=== PATIENT | female | born 1995 | race Caucasian/White ===

== ENCOUNTER → 2017-05-26 | Outpatient (REF) | payer OTHER | LOC: M LAB REF 18:49 | PROVIDERS: ATTEND Specialist | DX: Z12.4 Encounter for screening for malignant neoplasm of cervix (principal) ==

== ENCOUNTER → 2018-05-29 | Outpatient (REF) | payer OTHER | LOC: M LAB REF 13:42 | DX: Z12.4 Encounter for screening for malignant neoplasm of cervix (principal) | CPT/HCPCS: G0123 ==

== ENCOUNTER → 2019-05-30 | Outpatient (REF) | payer OTHER | LOC: M LAB REF 13:24 | PROVIDERS: ATTEND Specialist | DX: Z12.4 Encounter for screening for malignant neoplasm of cervix (principal) ==

== ENCOUNTER → 2019-08-21 | Outpatient (CLI) | payer OTHER ==
[2019-08-21 13:33] LABS: HEMATOCRIT 43.2 % (36.0-47.0); HEMOGLOBIN 13.8 g/dl (12.0-15.5); MEAN CORPUSCULAR HEMOGLOBIN 28.3 pg (27.0-33.0); MEAN CORPUSCULAR HGB CONC 31.9 g/dl (32.0-36.5); MEAN CORPUSCULAR VOLUME 88.5 fl (80.0-96.0); PLATELET COUNT, AUTOMATED 346 10^3/uL (150-450); RED BLOOD COUNT 4.88 10^6/uL (4.00-5.40); WHITE BLOOD COUNT 12.2 10^3/uL (4.0-10.0)
== END ==
LOC: M LAB 12:39
PROVIDERS: ATTEND Advanced Practice Midwife
DX: O02.1 Missed abortion (principal)

== ENCOUNTER → 2019-08-27 | Outpatient (CLI) | payer OTHER | LOC: M LAB 17:50 | PROVIDERS: ATTEND Advanced Practice Midwife | DX: O02.1 Missed abortion (principal) ==

== ENCOUNTER → 2019-09-05 | Outpatient (REF) | payer OTHER ==
[2019-09-05 12:14] LABS: BASO # 0.1 10^3/uL (0.0-0.2); BASO % 0.6 % (0.0-1.0); EOS # 0.2 10^3/uL (0.0-0.5); EOS % 2.4 % (0.0-3.0); HEMATOCRIT 41.6 % (36.0-47.0); HEMOGLOBIN 13.4 g/dl (12.0-15.5); LYMPH # 2.7 10^3/uL (1.5-5.0); LYMPH % 34.2 % (24.0-44.0); MEAN CORPUSCULAR HGB CONC 32.2 g/dl (32.0-36.5); MEAN CORPUSCULAR VOLUME 86.8 fl (80.0-96.0); MONO # 0.9 10^3/uL (0.0-0.8); NEUTROPHILS # 3.9 10^3/uL (1.5-8.5); PLATELET COUNT, AUTOMATED 310 10^3/uL (150-450); RED BLOOD COUNT 4.79 10^6/uL (4.00-5.40); WHITE BLOOD COUNT 7.8 10^3/uL (4.0-10.0)
[2019-09-05 12:25] LABS: ALBUMIN 3.6 GM/DL (3.2-5.2); ALT/SGPT 20 U/L (12-78); BILIRUBIN,TOTAL 0.5 MG/DL (0.2-1.0); BLOOD UREA NITROGEN 13 MG/DL (7-18); CALCIUM LEVEL 9.1 MG/DL (8.5-10.1); CARBON DIOXIDE LEVEL 25 MEQ/L (21-32); CHLORIDE LEVEL 101 MEQ/L (98-107); CHOLESTEROL LEVEL 257 MG/DL (<200); CHOLESTEROL RISK RATIO 4.508 (<5); CREATININE FOR GFR 0.68 MG/DL (0.55-1.30); FREE T4 1.03 NG/DL (0.76-1.46); GLOMERULAR FILTRATION RATE > 60.0 (>60); GLUCOSE, FASTING 98 MG/DL (70-100); HDL CHOLESTEROL 57 MG/DL (>40); LDL CHOLESTEROL 176 MG/DL (<100); NON-HDL-C 200 MG/DL; POTASSIUM SERUM 3.9 MEQ/L (3.5-5.1); SODIUM LEVEL 136 MEQ/L (136-145); TOTAL PROTEIN 7.5 GM/DL (6.4-8.2); TRIGLYCERIDES LEVEL 122 MG/DL (<150)
[2019-09-05 12:46] LABS: CREATININE, URINE 14.7 MG/DL; MALB URINE SIEMENS < 5.0 MG/L
== END ==
LOC: M SFHCCLAY 07:28
PROVIDERS: ATTEND Nurse Practitioner Family
DX: I10 Essential (primary) hypertension (principal)

== ENCOUNTER → 2019-09-05 | Outpatient (REF) | payer OTHER | LOC: M LABDRAWC 11:19 | PROVIDERS: ATTEND Advanced Practice Midwife | DX: O02.1 Missed abortion (principal) ==

== ENCOUNTER → 2020-02-26 | Outpatient (REF) | payer OTHER | LOC: M SFHCCLAY 13:06 | PROVIDERS: ATTEND Nurse Practitioner Family | DX: Z3A.01 Less than 8 weeks gestation of pregnancy (principal) ==

== ENCOUNTER → 2020-02-29 | Outpatient (REF) | payer OTHER | LOC: M SFHCCLAY 08:08 | PROVIDERS: ATTEND Nurse Practitioner Family | DX: Z3A.01 Less than 8 weeks gestation of pregnancy (principal) ==

== ENCOUNTER → 2020-03-22 | Outpatient (CLI) | payer OTHER ==
[2020-03-22 18:12] LABS: BASO % 0.5 % (0.0-1.0); EOS # 0.1 10^3/uL (0.0-0.5); EOS % 1.1 % (0.0-3.0); HEMATOCRIT 38.7 % (36.0-47.0); HEMOGLOBIN 12.4 g/dl (12.0-15.5); LYMPH # 1.9 10^3/uL (1.5-5.0); MEAN CORPUSCULAR HEMOGLOBIN 28.1 pg (27.0-33.0); MEAN CORPUSCULAR VOLUME 87.8 fl (80.0-96.0); MONO # 0.6 10^3/uL (0.0-0.8); MONO % 6.4 % (0.0-5.0); NEUTROPHILS # 6.2 10^3/uL (1.5-8.5); NEUTROPHILS % 69.5 % (36.0-66.0); PLATELET COUNT, AUTOMATED 276 10^3/uL (150-450); RED BLOOD COUNT 4.41 10^6/uL (4.00-5.40); WHITE BLOOD COUNT 8.9 10^3/uL (4.0-10.0)
[2020-03-22 18:20] LABS: ALT/SGPT 25 U/L (12-78); BILIRUBIN,TOTAL 0.3 MG/DL (0.2-1.0); GLOMERULAR FILTRATION RATE > 60.0 (>60); GLUCOSE CHALLENGE TEST 1 HOUR 159 MG/DL (LESS THAN 140); LDH LACTATE DEHYDROGENASE 131 U/L (84-246); URIC ACID 3.5 MG/DL (2.6-6.0)
[2020-03-22 18:35] LABS: CREATININE,RANDOM URINE 15.2 MG/DL; TOTAL PROTEIN,RANDOM URINE < 5.0 MG/DL (0.0-12.0)
[2020-03-22 18:45] LABS: HEMOGLOBIN A1c 5.8 %
[2020-03-22 22:11] LABS: CHLAMYDIA DNA AMPLIFICATION NEGATIVE (NEGATIVE); GC DNA AMPLIFICATION NEGATIVE (NEGATIVE)
[2020-03-24 11:37] LABS: HEPATITIS B SURFACE ANTIGEN NEGATIVE (NEGATIVE)
[2020-03-24 12:05] LABS: HIV 1&2 SCREEN CENTAUR NEGATIVE (NEGATIVE)
[2020-03-24 12:39] LABS: HEPATITIS C VIRUS ABY INDEX 0.2 INDEX (<0.8)
== END ==
LOC: M WUC 08:33
PROVIDERS: ATTEND Advanced Practice Midwife
DX: O10.919 Unspecified pre-existing hypertension complicating pregnancy, unspecified trimester (principal)

== ENCOUNTER → 2020-04-04 | Outpatient (CLI) | payer OTHER | LOC: M LAB 07:51 | PROVIDERS: ATTEND Advanced Practice Midwife | DX: O09.211 Supervision of pregnancy with history of pre-term labor, first trimester (principal) ==

== ENCOUNTER → 2020-06-05 | Outpatient (CLI) | payer OTHER ==
--- NOTE | 2020-06-24 17:28 | REP ---
OBSTETRIC SONOGRAPHY HISTORY: Supervision of . Estimated date of delivery (BLAIR) 10/22/2020. FINDINGS: Scanning through the gravid uterus demonstrates a viable single intrauterine gestation in a transverse, head to the maternal right lie. Placenta is anterior grade 0 without evidence of placenta previa or abruption. Closed cervical length is 3.4 cm. Amniotic fluid is subjectively normal. heart rate is recorded at 161 beats per minute. No abnormality is observed. Four chamber and ventricular outflow tract views are not optimally seen today due to position. The following additional anatomic structures are identified and felt to be unremarkable: Cisterna magna, cavum septum, thalami, spine, left-sided stomach, kidneys and bladder, three-vessel cord, abdominal wall cord insertion, face and lips, upper and lower extremities. BIOMETRY CHART: BPD 46 mm 20 weeks 0 days Head Circumference 173 mm 20 weeks 0 days Abdominal Circumference 153 mm 20 weeks 4 days Femur Length 33 mm 20 weeks 3 days Humeral Length 31 mm 20 weeks 2 days Cerebellum 19 mm 20 weeks 1 day Estimated Weight 351 g 60th percentile IMPRESSION: Viable single intrauterine gestation at 20 weeks 2 days. Four chamber heart and outflow tract views less than optimally achieved today due to position. Transverse lie. MTDD
== END ==
LOC: M WHC 12:43
PROVIDERS: ATTEND Advanced Practice Midwife
DX: Z34.82 Encounter for supervision of other normal pregnancy, second trimester (principal); Z3A.20 20 weeks gestation of pregnancy

== ENCOUNTER → 2020-07-07 | Outpatient (CLI) | payer OTHER ==
--- NOTE | 2020-07-16 13:43 | REP ---
FOLLOW-UP ANATOMY COMPARISON: 06/05/2020. TECHNIQUE: Real-time ultrasound evaluation of the gravid uterus is performed utilizing transabdominal technique. There is a single living intrauterine gestation. The estimated gestational age is 24 weeks 5 days, estimated date of confinement (EDC) 10/22/2020. Todays measurements indicate appropriate growth. BIOMETRY CHART: BPD 63 mm 25 weeks 3 days 65th percentile HC 229 mm 25 weeks 0 days 55th percentile AC 203 mm 24 weeks 6 days 54th percentile Femur length 45 mm 24 weeks 5 days 52nd percentile AC/HC ratio 1.13 Normal 1.02 to 1.21 Estimated weight 747 grams 49th percentile position is cephalic. Placenta is anterior and grade 1 with no previa or abruption. Placental cord insertion is in the mid aspect. Three-vessel cord is noted. heart rate is 158 beats per minute. Amniotic fluid appears within normal limits. Cervix is closed and measures 3.6 cm in length. Visualized anatomy today includes the facial structures, ventricular outflow tracts, stomach, kidneys, and bladder. Once again, the four chamber heart is not well visualized due to position. [facility]
== END ==
LOC: M WHC 14:29
PROVIDERS: ATTEND Advanced Practice Midwife
DX: Z34.82 Encounter for supervision of other normal pregnancy, second trimester (principal); Z3A.25 25 weeks gestation of pregnancy

== ENCOUNTER → 2020-07-21 | Outpatient (CLI) | payer OTHER ==
[2020-07-21 09:00] LABS: HEMATOCRIT 33.8 % (36.0-47.0); HEMOGLOBIN 10.9 g/dl (12.0-15.5); MEAN CORPUSCULAR HEMOGLOBIN 28.3 pg (27.0-33.0); MEAN CORPUSCULAR HGB CONC 32.2 g/dl (32.0-36.5); MEAN CORPUSCULAR VOLUME 87.8 fl (80.0-96.0); PLATELET COUNT, AUTOMATED 244 10^3/uL (150-450); RED BLOOD COUNT 3.85 10^6/uL (4.00-5.40); WHITE BLOOD COUNT 9.9 10^3/uL (4.0-10.0)
== END ==
LOC: M LAB 07:46
PROVIDERS: ATTEND Advanced Practice Midwife
DX: O10.012 Pre-existing essential hypertension complicating pregnancy, second trimester (principal); Z3A.00 Weeks of gestation of pregnancy not specified

== ENCOUNTER → 2020-08-25 | Outpatient (CLI) | payer OTHER ==
--- NOTE | 2020-08-26 04:11 | REP ---
INDICATION: O10.919 CHRONIC HYPERTENSION,GROWTH COMPARISON: 07/25/2020 TECHNIQUE: Transabdominal obstetrical ultrasound with color Doppler evaluation. FINDINGS: Examination demonstrates a single live intrauterine in cephalic presentation. motion is identified by technologist. Placenta is noted anterior and grade 1 without evidence for placenta previa or abruption. Amniotic fluid volume is normal. Cervix measures 3.0 cm in length and appears closed.. Gestational age by LMP 31 weeks 5 days with BLAIR 10/22/2020. Gestational age by current measurements 31 weeks 5 days with BLAIR 10/22/2020. FHR equals 147 beats per minute. BPD: 8.0 cm 32 weeks 0 days HC: 28.8 cm 31 weeks 4 days AC: 27.6 cm 31 weeks 5 days FL: 6.1 cm 31 weeks 4 days HL: 5.4 cm 31 weeks 4 days HC/AC: 1.04 Estimated weight 1812 grams (37thpercentile). NEENA: 13.9 cm (8.7-24.1) IMPRESSION: Single live advanced gestation in cephalic presentation demonstrating appropriate estimated weight and growth. Amniotic fluid index is normal. <Electronically signed by Humble Villa > 08/26/20 0139
== END ==
LOC: M WHC 10:49
PROVIDERS: ATTEND Advanced Practice Midwife
DX: O10.913 Unspecified pre-existing hypertension complicating pregnancy, third trimester (principal); Z3A.31 31 weeks gestation of pregnancy

== ENCOUNTER → 2020-08-27 | Outpatient (REF) | payer OTHER | LOC: M PLALAB 16:56 | PROVIDERS: ATTEND Obstetrics & Gynecology | DX: O10.913 Unspecified pre-existing hypertension complicating pregnancy, third trimester (principal); Z3A.00 Weeks of gestation of pregnancy not specified; Z53.9 Procedure and treatment not carried out, unspecified reason ==

== ENCOUNTER → 2020-09-09 | Outpatient (CLI) | payer OTHER ==
--- NOTE | 2020-09-11 06:58 | REP ---
INDICATION: GROWTH COMPARISON: 08/25/2020 TECHNIQUE: Transabdominal obstetrical ultrasound with color Doppler evaluation. FINDINGS: Examination demonstrates a single live intrauterine in cephalic presentation. motion is identified by technologist. Placenta is noted anterior and grade 2 without evidence for placenta previa or abruption. Amniotic fluid volume is normal. Cervix measures 3.0 cm in length and appears closed.. Gestational age by LMP 33 weeks 6 days with BLAIR 10/22/2020. Gestational age by current measurements 34 weeks 1 day with BLAIR 10/20/2020. FHR equals 153 beats per minute. NEENA: 13.2 cm Estimated weight 2485 grams (66thpercentile). IMPRESSION: Single live advanced gestation in cephalic presentation demonstrating appropriate estimated weight and growth. <Electronically signed by Humble Villa > 09/11/20 0645
== END ==
LOC: M WHC 13:51
PROVIDERS: ATTEND Advanced Practice Midwife
DX: O10.913 Unspecified pre-existing hypertension complicating pregnancy, third trimester (principal); Z3A.33 33 weeks gestation of pregnancy

== ENCOUNTER → 2020-09-17 | Outpatient (REF) | payer OTHER ==
[2020-09-17 11:59] LABS: HEMATOCRIT 35.7 % (36.0-47.0); HEMOGLOBIN 11.3 g/dl (12.0-15.5); MEAN CORPUSCULAR HEMOGLOBIN 27.7 pg (27.0-33.0); MEAN CORPUSCULAR HGB CONC 31.7 g/dl (32.0-36.5); MEAN CORPUSCULAR VOLUME 87.5 fl (80.0-96.0); PLATELET COUNT, AUTOMATED 250 10^3/uL (150-450); RED BLOOD COUNT 4.08 10^6/uL (4.00-5.40); WHITE BLOOD COUNT 10.9 10^3/uL (4.0-10.0)
[2020-09-17 12:29] LABS: CREATININE,RANDOM URINE < 13.0 MG/DL; TOTAL PROTEIN,RANDOM URINE 6.9 MG/DL (0.0-12.0)
[2020-09-17 12:35] LABS: ALT/SGPT 22 U/L (12-78); BILIRUBIN,TOTAL 0.2 MG/DL (0.2-1.0); CREATININE FOR GFR 0.55 MG/DL (0.55-1.30); GLOMERULAR FILTRATION RATE > 60.0 (>60); LDH LACTATE DEHYDROGENASE 146 U/L (84-246); URIC ACID 4.2 MG/DL (2.6-6.0)
== END ==
LOC: M PLALAB 07:05
PROVIDERS: ATTEND Advanced Practice Midwife
DX: O10.919 Unspecified pre-existing hypertension complicating pregnancy, unspecified trimester (principal); Z3A.00 Weeks of gestation of pregnancy not specified

== ENCOUNTER → 2020-09-23 | Outpatient (REF) | payer OTHER | LOC: M SFHCWAGY 16:48 | PROVIDERS: ATTEND Advanced Practice Midwife | DX: O10.019 Pre-existing essential hypertension complicating pregnancy, unspecified trimester (principal); Z3A.00 Weeks of gestation of pregnancy not specified ==

== ENCOUNTER → 2020-09-30 | Outpatient (CLI) | payer OTHER ==
--- NOTE | 2020-09-30 17:49 | REP ---
INDICATION: GROWTH. TECHNIQUE: Transabdominal ultrasound. FINDINGS: Multiple ultrasonographic images of the gravid uterus shows a single living intrauterine gestation in the cephalic presentation. Doppler interrogation of the heart is a heart rate of 138 beats per minute. The subjective amniotic fluid volume is within normal limits. The calculated amniotic fluid index is 14.5 within expected range 7.5 to 24.5. The cervix measures 4.6 cm in length and is closed. BPD 8.9 cm 36 weeks 0 days HC 32.4 cm 36 weeks 4 days AC 34.1 cm 38 weeks 0 days FL 7.0 cm 35 weeks 5 days The estimated weight is 3108 g which is at the 60th percentile for 36 week 6 day gestational age. IMPRESSION: Single living intrauterine gestation as described above with an estimated gestational age of 36 weeks 3 days by composite criteria and an estimated date of delivery of 10/25/2020 by today's exam. <Electronically signed by Tyrese Lloyd > 09/30/20 [id number]
== END ==
LOC: M WHC 16:22
PROVIDERS: ATTEND Advanced Practice Midwife
DX: O10.919 Unspecified pre-existing hypertension complicating pregnancy, unspecified trimester (principal); Z3A.36 36 weeks gestation of pregnancy

== ENCOUNTER 2020-10-09 08:43 | Inpatient (IN) | payer OTHER ==
[2020-10-09] VITALS (10 sets, daily range): BP systolic 124–145; BP diastolic 76–87
[~2020-10-09] VITALS: Ht 170.2 cm; Wt 101.0 kg
--- NOTE | 2020-10-09 09:37 | HPEPDOC ---
Obstetrical History & Physical General Date of Admission Oct 09, 2020 at 08:43 History of Present Illness Patient is a 25 y/o ,0,1,0 F at 38 and 1/7 weeks gestation by LMP consisten t with 8 week ultrasound (EDC= 10/22/2020) presents for labor induction due to chronic HTN on labetolol. No contraction, no vaginal bleeding, no leaking of fluid. Positive movement on admission. Information Provided By: Patient Age: 25 : 2 Term: 0 Pre-term: 0 Abortions: 1 Livin Care Care: Good Care Dating Final EDC: Oct 22, 2020 Final EDC by: LMP, 1st trimester (US) Antepartum Course Diagnos(e)s Chronic HTN on labetalol 400mg BID Past Medical History Past Obstetrical History : Past Obstetrical History: Primgravida Past Medical History Medical History Chronic HTN Surgical History: [place] teeth Family History Significant Family History: No pertinent family hx Social History Marital Status: Family situation: Spouse/partner home Psychosocial History: No pertinent psych hx * Smoker: non-smoker Alcohol: Denies Allergies Coded Allergies: No Known Drug Allergies (Verified Allergy, Unknown, 10/09/20) Physical Examination Physical Examination GENERAL: Alert and oriented times three. BREAST: . ABDOMEN: Gravid and non-tender to touch. FETUS: Is vertex (VTX) by sterile vaginal examination (SVE), fetus is vertex (VTX) by Uzair. HEART RATE: Regular rate and rhythm. LUNGS: Clear to auscultation (CTA). EXTREMITIES: No edema. No clonus. Deep tendon reflexes (DTRs) + . Laboratory Data 24H LABS Laboratory Tests 2 10/09/20 09:11: Serology Scanned Report Hepatitis B Testing Pertinent Laboratoy Data Blood Type: A+ Group B Streptococcus: Negative Vaginal Examination Dilation: 1cm Effacement: 50% Station: -2 Cervical Consistency: Soft Cervical Position: Anterior Presentation: Cephalic presentation Assessment Variability: Moderate Accelerations: Positive Decelerations: None Tocometer Contractions: No Assessment/Plan Assessment Susana Chan is a 25-year-old (G)2 para (P)0-0-1-0 at 38+ 1/7 weeks by 8-week ultrasound consistent with LMP. Presents to Labor and Delivery (L&D) for induction due to chronic HTN on 400mg labetalol BID. Plan Admit and orient. 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 Diet: regular. Group B Streptococcus (GBS) negative. Labs and intravenous (IV) per unit protocol. Anticipate normal spontaneous delivery (). C-S as appropriate. SHANAE DOCKERY OMS-3 Oct 09, 2020 09:37
[2020-10-09] MEDS ORDERED: LABE20TAB PO ×2 (09:46→10:01)
[2020-10-09] MEDS ORDERED: DERM1TAB2 PO (09:46)
[2020-10-09] MEDS ORDERED: ASPI81CH33 PO (09:46)
[2020-10-09] MEDS ORDERED: PRENTAB9 PO (09:46)
[2020-10-09] MEDS ORDERED: LABE200T32 PO (10:01)
[2020-10-09 10:13] LABS: HEMATOCRIT 34.4 % (36.0-47.0); HEMOGLOBIN 10.8 g/dl (12.0-15.5); MEAN CORPUSCULAR HEMOGLOBIN 26.5 pg (27.0-33.0); MEAN CORPUSCULAR HGB CONC 31.4 g/dl (32.0-36.5); MEAN CORPUSCULAR VOLUME 84.3 fl (80.0-96.0); PLATELET COUNT, AUTOMATED 219 10^3/uL (150-450); RED BLOOD COUNT 4.08 10^6/uL (4.00-5.40); WHITE BLOOD COUNT 10.2 10^3/uL (4.0-10.0)
[2020-10-09] MEDS: miSOPROStol 50 MCG 1/2 TAB (S0191) SL SCH ×4 (10:27→22:26)
[2020-10-09] MEDS ORDERED: LABETALOL 200 MG TAB PO SCH (21:00)
[2020-10-10] VITALS (40 sets, daily range): BP systolic 112–155; BP diastolic 56–93
[2020-10-10] MEDS ORDERED: OXYTOCIN 30 UNITS IN 0.9% NaCl 500ML IV BAG (J2590) As Ordered ONE (04:56)
[2020-10-10] MEDS ORDERED: IBUPROFEN 600MG TAB PO PRN (06:15)
[2020-10-10] MEDS ORDERED: ACETAMINOPHEN TAB 650MG DOSE (2X325MG) PO PRN (06:15)
[2020-10-10] MEDS ORDERED: MEASLES,MUMPS,RUBELLA VACCINE INJ (MMR-II) (90707) SC SCH (06:15)
[2020-10-10] MEDS ORDERED: OXYTOCIN DRIP 30 UNITS in IV 1 EA IV ONE (06:15)
[2020-10-10] MEDS ORDERED: OXYTOCIN INJ 10 UNITS/ML VIAL (J2590) IM ONE (06:15)
[2020-10-10] MEDS ORDERED: RHOGAM 300 MCG (1500 IU) INJ (J2790) IM SCH (06:15)
[2020-10-10] MEDS ORDERED: DOCUSATE SODIUM 100MG CAPSULE PO PRN (06:15)
[2020-10-10] MEDS ORDERED: ACETAMINOPHEN 500 MG TAB PO PRN (06:15)
[2020-10-10] MEDS ORDERED: METHYLERGONOVINE MALEATE 0.2 MG TAB PO PRN (06:15)
[2020-10-10] MEDS ORDERED: BENZOCAINE 20% HEMORRHOIDAL OINTMENT 28GM TUBE TOP PRN (06:15)
[2020-10-10] MEDS ORDERED: LIDOCAINE 1% MDV 20ML VIAL INFIL ONE (06:15)
--- NOTE | 2020-10-10 06:20 | DNPDOC ---
[facility] Delivery Note Delivery Note DATE OF DELIVERY: October 10, 2020 PREDELIVERY DIAGNOSIS: 37-3/7 weeks' gestation and labor. POST DELIVERY DIAGNOSIS: Delivered. PROCEDURE: Spontaneous vaginal delivery. [employer] VICE PRESIDENT: Dr. Maxi Mcallister MD ANESTHESIA: none. ESTIMATED BLOOD LOSS: 800 mL. FINDINGS: 7 pound 2 ounce Male , Score 8/9 DELIVERY SUMMARY: Patient is a 25-year-old 1 now para 1 who was admitted to labor and delivery for induction due to chronic hypertension. She received 4 doses of misoprostol. She had spontaneous rupture of membranes. After a 5 minute second stage of labor she had a spontaneous vaginal delivery of a 7 lb 2 oz male . No nuchal cord. Shoulders delivered with ease. The pl acenta delivered spontaneously and appeared intact. She received IV Pitocin and IM Pitocin after delivery of the placenta. A second degree perineal laceration and deep right sulcus tear was repaired under local anesthesia. An first assistant was utilized the provide retraction for the repair. Larger than expected EBL was due to blood loss from the vaginal laceration. MAXI MCALLISTER MD Oct 10, 2020 06:20
[2020-10-10] MEDS ORDERED: ONDANSETRON 4MG/2ML VIAL As Ordered ONE ×2 (07:14→07:48)
[2020-10-10] MEDS ORDERED: dexameTHASONE 4 MG/ML 1ML VIAL (J1100 PER 1MG) As Ordered ONE (07:14)
[2020-10-10] MEDS ORDERED: ROCURONIUM BROMIDE 50 MG/5 ML VIAL As Ordered ONE (07:14)
[2020-10-10] MEDS ORDERED: propofoL 200 MG/20 ML VIAL As Ordered ONE (07:14)
[2020-10-10] MEDS ORDERED: LIDOCAINE 2% 100MG/5ML SDV (FOR ANES.) As Ordered ONE (07:14)
[2020-10-10] MEDS ORDERED: MIDAZOLAM INJ 2MG/2ML VIAL (J2250 PER 1MG) As Ordered ONE (07:15)
[2020-10-10] MEDS ORDERED: fentaNYL 100 MCG/2 ML INJECTION (J3010) As Ordered ONE ×2 (07:15→08:21)
[2020-10-10] MEDS ORDERED: ACETAMINOPHEN 1000MG 100ML IV BTL (OFIRMEV) (J0131 PER 10MG) As Ordered ONE (07:47)
[2020-10-10] MEDS ORDERED: SUGAMMADEX SODIUM 500 MG/5 ML VIAL (BRIDION) As Ordered ONE (07:48)
[2020-10-10] MEDS ORDERED: METOCLOPRAMIDE INJ 10MG/2ML VIAL (J2765 PER 1) As Ordered ONE (07:48)
[2020-10-10] MEDS ORDERED: ceFAZolin 2 GM/D5W 50 ML IV BAG (J0690 PER 500MG) As Ordered ONE (07:52)
[2020-10-10] MEDS ORDERED: diphenhydrAMINE 50MG/ML VIAL (J1200) As Ordered ONE (08:14)
[2020-10-10] MEDS ORDERED: ONDANSETRON 4MG/2ML VIAL IV PRN (08:45)
[2020-10-10] MEDS ORDERED: METOCLOPRAMIDE INJ 10MG/2ML VIAL (J2765 PER 1) IV PRN (08:45)
[2020-10-10] MEDS ORDERED: fentaNYL 100 MCG/2 ML INJECTION (J3010) IV PRN (08:45)
[2020-10-10] MEDS ORDERED: PERCOCET 5MG/325MG TAB PO PRN (08:45)
[2020-10-10] MEDS ORDERED: LR 1,000 ML IV SCH (08:45)
[2020-10-10] MEDS: PRENATAL VITAMINS CHEWABLE TABLET PO SCH (09:23)
[2020-10-10] MEDS: LABETALOL 200 MG TAB PO SCH ×2 (09:23→20:36)
--- NOTE | 2020-10-10 09:31 | ROOPDOC ---
[facility] Report Of Operation Report of Operation DATE OF PROCEDURE: 10/10/20 PREPROCEDURE DIAGNOSES: vaginal wall hematoma. POSTPROCEDURE DIAGNOSES: same. PROCEDURE: evacuation of vaginal wall hematoma with revision of vaginal laceration repair. SURGEON: Maxi Mcallister MD ANESTHESIA: GETA. ESTIMATED BLOOD LOSS: Approximately 300 mL. COMPLICATIONS: none. PROCEDURE NOTE: Pt taken to OR where GETA was induced. She was prepped and draped in a sterile fashion in the dorsal lithotomy position. Previously place sutures were incised with Lang scissors. This opened up up the perineal laceration and right vaginal sulcus laceration. Approximately 200 cc of blood clot was removed from the vaginal side wall on the right, as well as the ischiorectal fossa. Retractors were placed vaginally to aid in visualization. O- Vicryl suture was used to close the sulcus tear in a running fashion. The perineal body was reapproximated with interrupted sutures. The remaining laceration was repaired in the usual fashion. sponge, needle , instrument counts correct. MAXI MCALLISTER MD Oct 10, 2020 09:31
[2020-10-10] MEDS: IBUPROFEN 800 MG TAB PO PRN ×2 (15:01→22:50)
[2020-10-10] MEDS ORDERED: SLF 3 ML SYR IV PRN (15:30)
[2020-10-10] MEDS: SLF 3 ML SYR IV SCH (22:00)
[2020-10-11 02:00] VITALS: BP 133/70
[2020-10-11 06:00] VITALS: BP 128/77
[2020-10-11] MEDS: SLF 3 ML SYR IV SCH ×3 (06:00→20:56)
--- NOTE | 2020-10-11 07:38 | IPNPDOC ---
Progress Note Date of Service: Oct 11, 2020 Day#: 1 Progress Note SUBJECT: Susana is a 25-year-old 2 now Para 1-0-1-1 status post sponta neous vaginal delivery complicated by a vaginal hematoma that was drained yesterday. History of chronic hypertension, well controlled on Labetalol. She is doing well day # 1. She has been ambulating, voiding spontaneously without issue and tolerating regular diet. Formula feeding without issue, reviewed methods for breast comfort when milk comes in. Reports lochia is like a normal period. Pain well controlled with Tylenol and Motrin. Denies SOB, chest pain, dizziness, extreme fatigue. Denies s/s of preeclampsia. OBJECTIVE: VITAL SIGNS: Within normal limits, afebrile. Alert and oriented times three. Respirations regular, no accessory muscle use Abdomen: Fundus firm at U-1. Soft, NTTP. Extremities: minimal edema in bilateral lower legs, DTRs +2, negative clonus, negative calf tenderness. Minimal lochia. ASSESSMENT: Day #1 PLAN: 1. CBC to drawn this AM, consider blood transfusion depending on Hgb/Hct. 2. Tylenol and Motrin for pain. 3. Encourage ambulation. 4. Nursing care per policy. 5. May shower today. 6. Continue with Labetalol as ordered. VS, I&O, 24H, Fishbone Vital Signs/I&O Vital Signs Date Time Temp Pulse Resp B/P (MAP) Pulse Ox O2 Delivery O2 Flow Rate FiO2 10/11/20 06:00 98.2 89 18 128/77 (94) 98 Room Air 10/10/20 08:15 2 I&O- Last 24 Hours up to 6 AM 10/11/20 06:00 Intake Total 950 ml Output Total 1200 ml Balance -250 ml BENITO PANG CNM Oct 11, 2020 07:34
[2020-10-11] MEDS: LABETALOL 200 MG TAB PO SCH ×2 (08:30→20:55)
[2020-10-11 08:33] LABS: MEAN CORPUSCULAR HEMOGLOBIN 26.5 pg (27.0-33.0); MEAN CORPUSCULAR HGB CONC 30.4 g/dl (32.0-36.5); MEAN CORPUSCULAR VOLUME 87.1 fl (80.0-96.0); PLATELET COUNT, AUTOMATED 200 10^3/uL (150-450); RED BLOOD COUNT 2.87 10^6/uL (4.00-5.40); WHITE BLOOD COUNT 14.5 10^3/uL (4.0-10.0)
[2020-10-11 08:34] LABS: HEMOGLOBIN 7.6 g/dl (12.0-15.5)
[2020-10-11] MEDS: PRENATAL VITAMINS CHEWABLE TABLET PO SCH (08:38)
[2020-10-11] MEDS: IBUPROFEN 800 MG TAB PO PRN ×2 (08:39→20:56)
[2020-10-11 10:00] VITALS: BP 106/57
[2020-10-11 14:00] VITALS: BP 119/61
[2020-10-11 18:00] VITALS: BP 118/70
[2020-10-11 22:00] VITALS: BP 129/68
[2020-10-12] VITALS (12 sets, daily range): BP systolic 118–151; BP diastolic 58–90
[2020-10-12] MEDS: SLF 3 ML SYR IV SCH ×2 (06:09→15:17)
[2020-10-12] MEDS: PRENATAL VITAMINS CHEWABLE TABLET PO SCH (08:07)
[2020-10-12] MEDS: LABETALOL 200 MG TAB PO SCH ×2 (08:09→20:19)
[2020-10-12 08:20] LABS: HEMATOCRIT 23.7 % (36.0-47.0); HEMOGLOBIN 7.1 g/dl (12.0-15.5); MEAN CORPUSCULAR HEMOGLOBIN 26.6 pg (27.0-33.0); MEAN CORPUSCULAR VOLUME 88.8 fl (80.0-96.0); PLATELET COUNT, AUTOMATED 212 10^3/uL (150-450); RED BLOOD COUNT 2.67 10^6/uL (4.00-5.40); WHITE BLOOD COUNT 11.3 10^3/uL (4.0-10.0)
--- NOTE | 2020-10-12 09:45 | IPNPDOC ---
Progress Note Date of Service: Oct 12, 2020 Day#: 2 Progress Note SUBJECT: Status post complicated by PPH/vaginal hematoma (evacuated/repaired in Main OR). She has been ambulating (but has felt mildly faint/dizzy over the past 24 hours), voiding spontaneously without issue and tolerating regular diet. Pain under control. Lochia decreasing/minimal. Patient is ambulating well/took shower this morning without issue. Patient still feeling fatigued and intermittently faint. OBJECTIVE: VITAL SIGNS: Within normal limits, afebrile. Alert and oriented times three. Abdomen: Fundus firm at U-2. Soft, NTTP. ASSESSMENT: PPD#2 , Status post spontaneous vaginal delivery w/ subsequent hematoma evacuation / repair. Symptomatic postoperative anemia. Vitals essentially within normal limits (intermittent mild HTN), afebrile, hemodynamically stable with no evidence of infection. PLAN: Transfuse 2u prbc; r/b/a/i of transfusion were reviewed and informed consent obtained. Anticipate discharge to home later today. Tylenol and Motrin for pain. Routine instructions/precautions reviewed. Routine PP visit in 6 weeks in clinic. VS, I&O, 24H, Fishbone Vital Signs/I&O Vital Signs Date Time Temp Pulse Resp B/P (MAP) Pulse Ox O2 Delivery O2 Flow Rate FiO2 10/12/20 08:09 75 141/70 10/12/20 06:00 98.4 16 98 Room Air 10/10/20 08:15 2 Laboratory Data 24H LABS Laboratory Tests 2 10/12/20 07:54: Nucleated Red Blood Cells % (auto) 0.0 CBC/BMP Laboratory Tests 10/12/20 07:54 JED ROSADO DO Oct 12, 2020 09:45
[2020-10-12 18:23] LABS: HEMATOCRIT 30.7 % (36.0-47.0); MEAN CORPUSCULAR HGB CONC 31.3 g/dl (32.0-36.5); MEAN CORPUSCULAR VOLUME 86.5 fl (80.0-96.0); PLATELET COUNT, AUTOMATED 228 10^3/uL (150-450); RED BLOOD COUNT 3.55 10^6/uL (4.00-5.40); WHITE BLOOD COUNT 12.9 10^3/uL (4.0-10.0)
[2020-10-12 19:35] LABS: HEMOGLOBIN 9.6 g/dl (12.0-15.5)
== END 2020-10-12 20:35 | disposition home or self-care (01) | DRG 806 ==
LOC: M LDI 08:43 → M OBS 10-10 15:45
PROVIDERS: ADMIT Specialist; ATTEND Specialist
PROC: 3E0DXGC Introduction of Other Therapeutic Substance into Mouth and Pharynx, External Approach (ICD-10-PCS; 2020-10-09)
PROC: 0KQM0ZZ Repair Perineum Muscle, Open Approach (ICD-10-PCS; 2020-10-10)
PROC: 0UCG7ZZ Extirpation of Matter from Vagina, Via Natural or Artificial Opening (ICD-10-PCS; 2020-10-10)
PROC: 0HQ9XZZ Repair Perineum Skin, External Approach (ICD-10-PCS; 2020-10-10)
PROC: 10E0XZZ Delivery of Products of Conception, External Approach (ICD-10-PCS; principal; 2020-10-10 07:01)
DX: O10.92 Unspecified pre-existing hypertension complicating childbirth (principal); Z37.0 Single live birth; O71.7 Obstetric hematoma of pelvis; Z3A.37 37 weeks gestation of pregnancy; O70.1 Second degree perineal laceration during delivery

== ENCOUNTER → 2020-12-24 | Outpatient (REF) | payer OTHER ==
[~2020-12-24] MED LIST: ASPI81CH33 PO; DERM1TAB2 PO; LABE200T32 PO; LABE20TAB PO; PRENTAB9 PO
[2020-12-24 12:11] LABS: BASO % 0.6 % (0.0-1.0); EOS # 0.3 10^3/uL (0.0-0.5); EOS % 5.8 % (0.0-3.0); HEMATOCRIT 40.7 % (36.0-47.0); HEMOGLOBIN 12.5 g/dl (12.0-15.5); LYMPH # 1.9 10^3/uL (1.5-5.0); LYMPH % 37.1 % (24.0-44.0); MEAN CORPUSCULAR HEMOGLOBIN 27.1 pg (27.0-33.0); MEAN CORPUSCULAR HGB CONC 30.7 g/dl (32.0-36.5); MEAN CORPUSCULAR VOLUME 88.3 fl (80.0-96.0); MONO # 0.7 10^3/uL (0.0-0.8); MONO % 13.2 % (2.0-8.0); NEUTROPHILS # 2.1 10^3/uL (1.5-8.5); NEUTROPHILS % 42.7 % (36.0-66.0); PLATELET COUNT, AUTOMATED 306 10^3/uL (150-450); RED BLOOD COUNT 4.61 10^6/uL (4.00-5.40)
[2020-12-24 12:46] LABS: ERYTHROCYTE SEDIMENTATION RATE 6 mm/hr (0-20)
[2020-12-24 12:54] LABS: ALBUMIN 3.7 GM/DL (3.2-5.2); ALT/SGPT 23 U/L (12-78); BILIRUBIN,TOTAL 0.3 MG/DL (0.2-1.0); BLOOD UREA NITROGEN 12 MG/DL (7-18); C REACTIVE PROTEIN QUANTITATIV 0.45 MG/DL (0.00-0.30); CALCIUM LEVEL 8.8 MG/DL (8.5-10.1); CARBON DIOXIDE LEVEL 27 MEQ/L (21-32); CHLORIDE LEVEL 106 MEQ/L (98-107); FREE T4 0.89 NG/DL (0.76-1.46); GLOMERULAR FILTRATION RATE > 60.0 (>60); GLUCOSE, FASTING 101 MG/DL (70-100); POTASSIUM SERUM 4.4 MEQ/L (3.5-5.1); SODIUM LEVEL 138 MEQ/L (136-145); THYROID STIMULATING HORMONE 0.605 uIU/ML (0.358-3.740)
[2020-12-25 23:15] LABS: ANA (HEP2) Positive (.)
== END ==
LOC: M SFHCCLAY 07:20
PROVIDERS: ATTEND Nurse Practitioner Family
DX: O26.86 Pruritic urticarial papules and plaques of pregnancy (PUPPP) (principal); I10 Essential (primary) hypertension

== ENCOUNTER → 2021-06-02 | Outpatient (REF) | payer OTHER | LOC: M SFHCWAGY 17:06 | PROVIDERS: ATTEND Specialist | DX: Z12.4 Encounter for screening for malignant neoplasm of cervix (principal) ==

== ENCOUNTER → 2021-07-20 | Outpatient (REF) | payer OTHER ==
[2021-07-20 13:40] LABS: APPEARANCE, URINE HAZY (CLEAR); BACTERIA, URINE AUTO NEGATIVE (NEGATIVE); BILIRUBIN, URINE AUTO NEGATIVE (NEGATIVE); BLOOD, URINE BLOOD 2+ (NEGATIVE); COLOR, URINE YELLOW (YELLOW); GLUCOSE, URINE (UA) AUTO NEGATIVE (NEGATIVE); KETONE, URINE AUTO NEGATIVE (NEGATIVE); LEUKOCYTE ESTERASE, URINE AUTO NEGATIVE (NEGATIVE); NITRITE, URINE AUTO NEGATIVE (NEGATIVE); PROTEIN, URINE AUTO NEGATIVE (NEGATIVE); RBC, URINE AUTO 1 /HPF (0-3); SPECIFIC GRAVITY URINE AUTO 1.014 (1.002-1.035); SQUAMOUS EPITHELIAL CELL UR AU 3 /HPF (0-6); UROBILINOGEN, URINE AUTO 0.2 mg/dL (0.0-2.0); WBC, URINE AUTO 0 /HPF (0-3)
[2021-07-20 13:46] LABS: BASO % 0.8 % (0.0-1.0); EOS # 0.5 10^3/uL (0.0-0.5); EOS % 9.9 % (0.0-3.0); HEMATOCRIT 43.3 % (36.0-47.0); HEMOGLOBIN 13.6 g/dl (12.0-15.5); LYMPH # 1.5 10^3/uL (1.5-5.0); LYMPH % 30.5 % (24.0-44.0); MEAN CORPUSCULAR HEMOGLOBIN 28.3 pg (27.0-33.0); MEAN CORPUSCULAR HGB CONC 31.4 g/dl (32.0-36.5); MONO # 0.7 10^3/uL (0.0-0.8); MONO % 14.1 % (2.0-8.0); NEUTROPHILS # 2.1 10^3/uL (1.5-8.5); NEUTROPHILS % 44.1 % (36.0-66.0); PLATELET COUNT, AUTOMATED 258 10^3/uL (150-450); RED BLOOD COUNT 4.81 10^6/uL (4.00-5.40); WHITE BLOOD COUNT 4.8 10^3/uL (4.0-10.0)
[2021-07-20 14:16] LABS: CREATININE,RANDOM URINE 86.1 MG/DL; TOTAL PROTEIN,RANDOM URINE 15.5 MG/DL (0.0-12.0)
[2021-07-20 14:19] LABS: ALBUMIN 3.6 GM/DL (3.2-5.2); ALT/SGPT 20 U/L (12-78); BILIRUBIN,TOTAL 0.2 MG/DL (0.2-1.0); BLOOD UREA NITROGEN 9 MG/DL (7-18); C REACTIVE PROTEIN QUANTITATIV 1.72 MG/DL (0.00-0.30); CALCIUM LEVEL 8.8 MG/DL (8.5-10.1); CARBON DIOXIDE LEVEL 28 MEQ/L (21-32); CHLORIDE LEVEL 106 MEQ/L (98-107); COMPLEMENT C3 100 MG/DL (90-180); COMPLEMENT C4 26 MG/DL (10-40); CREATININE FOR GFR 0.63 MG/DL (0.55-1.30); GLOMERULAR FILTRATION RATE > 60.0 (>60); GLUCOSE, FASTING 100 MG/DL (70-100); POTASSIUM SERUM 4.3 MEQ/L (3.5-5.1); SODIUM LEVEL 137 MEQ/L (136-145)
[2021-07-20 16:00] LABS: ERYTHROCYTE SEDIMENTATION RATE 5 mm/hr (0-20)
== END ==
LOC: M SFHCRHEU 10:06
PROVIDERS: ATTEND Internal Medicine Rheumatology
DX: R76.8 Other specified abnormal immunological findings in serum (principal)

== ENCOUNTER → 2022-04-13 | Outpatient (REF) | payer OTHER ==
[~2022-04-13] MED LIST changes: +LABE200T3 PO; -LABE200T32 PO
[2022-04-13 11:47] LABS: BASO % 0.4 % (0.0-1.0); EOS # 0.3 10^3/uL (0.0-0.5); EOS % 2.6 % (0.0-3.0); HEMOGLOBIN 13.7 g/dl (12.0-15.5); LYMPH # 2.2 10^3/uL (1.5-5.0); LYMPH % 23.1 % (24.0-44.0); MEAN CORPUSCULAR HEMOGLOBIN 28.3 pg (27.0-33.0); MEAN CORPUSCULAR HGB CONC 32.6 g/dl (32.0-36.5); MEAN CORPUSCULAR VOLUME 86.8 fl (80.0-96.0); MONO # 0.9 10^3/uL (0.0-0.8); MONO % 9.6 % (2.0-8.0); PLATELET COUNT, AUTOMATED 257 10^3/uL (150-450); RED BLOOD COUNT 4.84 10^6/uL (4.00-5.40); WHITE BLOOD COUNT 9.5 10^3/uL (4.0-10.0)
[2022-04-13 23:31] LABS: ALBUMIN 3.6 GM/DL (3.2-5.2); ALT/SGPT 19 U/L (12-78); BILIRUBIN,TOTAL 0.6 MG/DL (0.2-1.0); BLOOD UREA NITROGEN 11 MG/DL (7-18); CALCIUM LEVEL 9.2 MG/DL (8.5-10.1); CARBON DIOXIDE LEVEL 26 MEQ/L (21-32); CHLORIDE LEVEL 104 MEQ/L (98-107); CHOLESTEROL LEVEL 177 MG/DL (<200); CHOLESTEROL RISK RATIO 4.657 (<5); CREATININE FOR GFR 0.88 MG/DL (0.55-1.30); GLOMERULAR FILTRATION RATE > 60.0 (>60); GLUCOSE, FASTING 92 MG/DL (70-100); HDL CHOLESTEROL 38 MG/DL (>40); LDL CHOLESTEROL 62 MG/DL (<100); NON-HDL-C 139 MG/DL; POTASSIUM SERUM 3.9 MEQ/L (3.5-5.1); SODIUM LEVEL 138 MEQ/L (136-145); THYROID STIMULATING HORMONE 0.762 uIU/ML (0.358-3.740); TOTAL PROTEIN 6.9 GM/DL (6.4-8.2); TRIGLYCERIDES LEVEL 387 MG/DL (<150)
[2022-04-14 21:07] LABS: ANA (HEP2) Positive (.)
== END ==
LOC: M SFHCCLAY 07:48
PROVIDERS: ATTEND Nurse Practitioner Family
DX: O10.019 Pre-existing essential hypertension complicating pregnancy, unspecified trimester (principal); O26.899 Other specified pregnancy related conditions, unspecified trimester; R76.8 Other specified abnormal immunological findings in serum; O26.86 Pruritic urticarial papules and plaques of pregnancy (PUPPP); Z3A.00 Weeks of gestation of pregnancy not specified

== ENCOUNTER → 2022-07-26 | Outpatient (REF) | payer OTHER ==
[~2022-07-26] MED LIST changes: -LABE200T3 PO; +LABE200T5 PO
== END ==
LOC: M SFHCWAGY 12:51
PROVIDERS: ATTEND Nurse Practitioner Family
DX: Z12.4 Encounter for screening for malignant neoplasm of cervix (principal)
CPT/HCPCS: 87624; G0123

== ENCOUNTER → 2022-08-25 | Outpatient (REF) | payer OTHER ==
[2022-08-25 12:06] LABS: BASO # 0.1 10^3/uL (0.0-0.2); BASO % 0.8 % (0.0-1.0); EOS # 0.1 10^3/uL (0.0-0.5); EOS % 2.1 % (0.0-3.0); HEMATOCRIT 42.5 % (36.0-47.0); HEMOGLOBIN 13.2 g/dl (12.0-15.5); LYMPH # 2.5 10^3/uL (1.5-5.0); LYMPH % 40.4 % (24.0-44.0); MEAN CORPUSCULAR HEMOGLOBIN 27.6 pg (27.0-33.0); MEAN CORPUSCULAR HGB CONC 31.1 g/dl (32.0-36.5); MEAN CORPUSCULAR VOLUME 88.7 fl (80.0-96.0); MONO # 0.6 10^3/uL (0.0-0.8); MONO % 10.2 % (2.0-8.0); NEUTROPHILS # 2.8 10^3/uL (1.5-8.5); NEUTROPHILS % 44.9 % (36.0-66.0); PLATELET COUNT, AUTOMATED 255 10^3/uL (150-450); RED BLOOD COUNT 4.79 10^6/uL (4.00-5.40); WHITE BLOOD COUNT 6.2 10^3/uL (4.0-10.0)
[2022-08-25 12:33] LABS: ERYTHROCYTE SEDIMENTATION RATE 9 mm/hr (0-20)
[2022-08-25 12:38] LABS: ALBUMIN 3.7 G/DL (3.2-5.2); ALT/SGPT 23 U/L (7.0-40); BILIRUBIN,TOTAL 0.5 MG/DL (0.3-1.2); BLOOD UREA NITROGEN 13 MG/DL (9-23); CALCIUM LEVEL 8.8 MG/DL (8.5-10.1); CARBON DIOXIDE LEVEL 25 MMOL/L (20-31); CHLORIDE LEVEL 104 MMOL/L (98-107); CREATININE FOR GFR 0.67 MG/DL (0.55-1.30); GLOMERULAR FILTRATION RATE > 60.0 (>60); GLUCOSE, FASTING 117 MG/DL (60-100); POTASSIUM SERUM 4.4 MMOL/L (3.5-5.1); RHEUMATOID FACTOR QUANT < 3.5 IU/ML (<14); SODIUM LEVEL 139 MMOL/L (136-145); URIC ACID 5.1 MG/DL (3.1-7.8)
== END ==
LOC: M SFHCCLAY 07:52
PROVIDERS: ATTEND Nurse Practitioner Family
DX: R76.8 Other specified abnormal immunological findings in serum (principal)

== ENCOUNTER → 2022-11-23 | Outpatient (CLI) | payer OTHER | LOC: M RAD 10:07 | PROVIDERS: ATTEND Psychiatry & Neurology Neurology | DX: M25.561 Pain in right knee (principal); M25.551 Pain in right hip ==

== ENCOUNTER → 2023-06-27 | Outpatient (CLI) | payer OTHER | LOC: M WHC 12:14 | PROVIDERS: ATTEND Advanced Practice Midwife | DX: N83.209 Unspecified ovarian cyst, unspecified side (principal); Q51.28 Other and unspecified doubling of uterus; N85.4 Malposition of uterus ==

== ENCOUNTER 2023-10-05 09:35 | Day surgery (SDC) | payer OTHER ==
[~2023-10-05] VITALS: Ht 170.2 cm; Wt 86.9 kg
[~2023-10-05 09:35] MED LIST changes: +CHOL50003 PO; +IBUP-1022 PO; +KETOROLAC 60MG 2ML VIAL As Ordered ONE; +LABE100T6 PO; +LIDOCAINE 2% 100MG/5ML SDV (FOR ANES.) As Ordered ONE; +MIDAZOLAM INJ 2MG/2ML VIAL As Ordered ONE; +ONDANSETRON 4MG 2ML VIAL As Ordered ONE; +TIZA10TA; +fentaNYL 100 MCG/2 ML INJECTION As Ordered ONE; +propofoL 200 MG/20 ML VIAL As Ordered ONE
[2023-10-05] MEDS ORDERED: LR 1,000 ML IV SCH ×2 (10:00→12:55)
[2023-10-05] MEDS ORDERED: BACITRACIN OINTMENT 30GM TUBE As Ordered ONE (12:00)
[2023-10-05] MEDS ORDERED: METOCLOPRAMIDE INJ 10MG/2ML VIAL IV PRN (12:55)
[2023-10-05] MEDS ORDERED: fentaNYL 100 MCG/2 ML INJECTION IV PRN (12:55)
[2023-10-05] MEDS ORDERED: ONDANSETRON 4MG 2ML VIAL IV PRN (12:55)
[2023-10-05] MEDS ORDERED: oxyCODONE 5MG TAB PO PRN (12:55)
[2023-10-05] MEDS ORDERED: PERCOCET PO (13:31)
[2023-10-05 13:36] VITALS: BP 152/87; TEMP 97.7; O2SAT 99
== END 2023-10-05 14:00 | disposition home or self-care (01) ==
LOC: M SDC 09:35
PROVIDERS: ATTEND Orthopaedic Surgery Hand Surgery
DX: G56.01 Carpal tunnel syndrome, right upper limb (principal); I10 Essential (primary) hypertension; G43.909 Migraine, unspecified, not intractable, without status migrainosus; Z79.899 Other long term (current) drug therapy
CPT/HCPCS: 29848; J0665; J1100; J1885; J2250; J2405; J3010

== ENCOUNTER 2023-10-21 09:53 | Day surgery (SDC) | payer OTHER ==
[~2023-10-21] VITALS: Ht 170.2 cm; Wt 86.8 kg
[~2023-10-21 09:53] MED LIST changes: -KETOROLAC 60MG 2ML VIAL As Ordered ONE; -LIDOCAINE 2% 100MG/5ML SDV (FOR ANES.) As Ordered ONE; -MIDAZOLAM INJ 2MG/2ML VIAL As Ordered ONE; -ONDANSETRON 4MG 2ML VIAL As Ordered ONE; +PERCOCET PO; -fentaNYL 100 MCG/2 ML INJECTION As Ordered ONE; -propofoL 200 MG/20 ML VIAL As Ordered ONE
[2023-10-21] MEDS ORDERED: LR 1,000 ML IV SCH ×2 (10:45→12:35)
[2023-10-21] MEDS ORDERED: BACITRACIN OINTMENT 30GM TUBE As Ordered ONE (11:47)
[2023-10-21] MEDS ORDERED: ONDANSETRON 4MG 2ML VIAL As Ordered ONE (12:07)
[2023-10-21] MEDS ORDERED: propofoL 200 MG/20 ML VIAL As Ordered ONE (12:07)
[2023-10-21] MEDS ORDERED: KETOROLAC 60MG 2ML VIAL As Ordered ONE (12:07)
[2023-10-21] MEDS ORDERED: fentaNYL 100 MCG/2 ML INJECTION As Ordered ONE (12:07)
[2023-10-21] MEDS ORDERED: MIDAZOLAM INJ 2MG/2ML VIAL As Ordered ONE (12:07)
[2023-10-21] MEDS ORDERED: LIDOCAINE 2% 100MG/5ML SDV (FOR ANES.) As Ordered ONE (12:07)
[2023-10-21] MEDS ORDERED: ACETAMINOPHEN 1000MG 100ML IV BAG As Ordered ONE (12:08)
[2023-10-21] MEDS ORDERED: HYDROMORPHONE HCL 0.5 MG/ 0.5 ML SYRINGE IV PRN (12:35)
[2023-10-21] MEDS ORDERED: oxyCODONE 5MG TAB PO PRN (12:35)
[2023-10-21] MEDS ORDERED: fentaNYL 100 MCG/2 ML INJECTION IV PRN (12:35)
[2023-10-21] MEDS ORDERED: ONDANSETRON 4MG 2ML VIAL IV PRN (12:35)
[2023-10-21 13:22] VITALS: BP 142/85; TEMP 97.1; O2SAT 100
== END 2023-10-21 13:40 | disposition home or self-care (01) ==
LOC: M SDC 09:53
PROVIDERS: ATTEND Orthopaedic Surgery Hand Surgery
DX: G56.02 Carpal tunnel syndrome, left upper limb (principal); I10 Essential (primary) hypertension; G43.909 Migraine, unspecified, not intractable, without status migrainosus; Z79.899 Other long term (current) drug therapy
CPT/HCPCS: 29848; 81025; J0131; J0665; J1100; J1885; J2250; J2405; J3010

== ENCOUNTER → 2023-12-21 | Outpatient (REF) | payer OTHER ==
[2023-12-21 12:06] LABS: BASO % 0.7 % (0.0-1.0); EOS # 0.2 10^3/uL (0.0-0.5); EOS % 2.6 % (0.0-3.0); HEMATOCRIT 43.2 % (36.0-47.0); HEMOGLOBIN 14.2 g/dl (12.0-15.5); LYMPH % 32.3 % (24.0-44.0); MEAN CORPUSCULAR HEMOGLOBIN 28.7 pg (27.0-33.0); MEAN CORPUSCULAR HGB CONC 32.9 g/dl (32.0-36.5); MEAN CORPUSCULAR VOLUME 87.4 fl (80.0-96.0); MONO # 0.6 10^3/uL (0.0-0.8); MONO % 10.6 % (2.0-8.0); NEUTROPHILS # 3.2 10^3/uL (1.5-8.5); NEUTROPHILS % 52.3 % (36.0-66.0); PLATELET COUNT, AUTOMATED 278 10^3/uL (150-450); RED BLOOD COUNT 4.94 10^6/uL (4.00-5.40)
[2023-12-21 12:31] LABS: ALBUMIN 3.9 G/DL (3.2-5.2); ALKALINE PHOSPHATASE 99 U/L (46-116); ALT/SGPT 10 U/L (7.0-40); AST/SGOT < 8 U/L (<34); BILIRUBIN,TOTAL 0.4 MG/DL (0.3-1.2); BLOOD UREA NITROGEN 14 MG/DL (9-23); CALCIUM LEVEL 8.4 MG/DL (8.5-10.1); CARBON DIOXIDE LEVEL 27 MMOL/L (20-31); CHLORIDE LEVEL 105 MMOL/L (98-107); CHOLESTEROL LEVEL 191 MG/DL (<200); CHOLESTEROL RISK RATIO 3.79 (<5); CREATININE FOR GFR 0.65 MG/DL (0.55-1.30); GLOMERULAR FILTRATION RATE > 60.0 (>60); GLUCOSE, FASTING 102 MG/DL (60-100); HDL CHOLESTEROL 50.3 MG/DL (>40); LDL CHOLESTEROL 125.5 MG/DL (<100); NON-HDL-C 140.7 MG/DL; POTASSIUM SERUM 4.1 MMOL/L (3.5-5.1); SODIUM LEVEL 138 MMOL/L (136-145); THYROID STIMULATING HORMONE 0.779 uIU/ML (0.55-4.78); TOTAL PROTEIN 6.8 G/DL (5.7-8.2); TRIGLYCERIDES LEVEL 76 MG/DL (<150)
[2023-12-21 12:54] LABS: HEMOGLOBIN A1c 5.6 % (4.0-6.0)
== END ==
LOC: M SFHCCLAY 07:37
PROVIDERS: ATTEND Nurse Practitioner Family
DX: I10 Essential (primary) hypertension (principal); E66.9 Obesity, unspecified; Z13.220 Encounter for screening for lipoid disorders; Z13.1 Encounter for screening for diabetes mellitus

== ENCOUNTER → 2024-05-31 | Outpatient (REF) | payer OTHER | LOC: M SFHCWAGY 12:32 | PROVIDERS: ATTEND Nurse Practitioner Family | DX: Z12.4 Encounter for screening for malignant neoplasm of cervix (principal) | CPT/HCPCS: 87624; G0123 ==

== ENCOUNTER → 2024-10-24 | Outpatient (CLI) | payer OTHER ==
[2024-10-24 19:08] LABS: HEMOGLOBIN A1c 5.4 % (4.0-6.0)
== END ==
LOC: M PLALAB 14:52
PROVIDERS: ATTEND Nurse Practitioner Family
DX: E28.2 Polycystic ovarian syndrome (principal)

== ENCOUNTER → 2025-04-11 | Outpatient (CLI) | payer OTHER | LOC: M WHC 07:20 | PROVIDERS: ATTEND Nurse Practitioner Family | DX: T83.32XA Displacement of intrauterine contraceptive device, initial encounter (principal) ==

== ENCOUNTER → 2025-06-24 | Outpatient (REF) | payer OTHER ==
[~2025-06-24] MED LIST changes: -IBUP-1022 PO; +IBUP600T42 PO
[2025-06-24 12:57] LABS: BASO # 0.1 10^3/uL (0.0-0.2); BASO % 0.8 % (0.0-1.0); EOS # 0.2 10^3/uL (0.0-0.5); EOS % 3.0 % (0.0-3.0); LYMPH # 2.5 10^3/uL (1.5-5.0); LYMPH % 37.7 % (24.0-44.0); MONO # 0.7 10^3/uL (0.0-0.8); MONO % 11.0 % (2.0-8.0); NEUTROPHILS # 3.1 10^3/uL (1.5-8.5); NEUTROPHILS % 46.7 % (36.0-66.0); PLATELET COUNT, AUTOMATED 267 10^3/uL (150-450)
[2025-06-24 13:16] LABS: ESTIMATED AVERAGE GLUCOSE 120.0 MG/DL (60-110)
[2025-06-24 13:35] LABS: ALT/SGPT 13 U/L (7.0-40); AST/SGOT 9 U/L (<34); CALCIUM LEVEL 8.6 MG/DL (8.5-10.1); CARBON DIOXIDE LEVEL 27 MMOL/L (20-31); CHLORIDE LEVEL 104 MMOL/L (98-107); CHOLESTEROL LEVEL 182 MG/DL (<200); CHOLESTEROL RISK RATIO 3.22 (<5); COMPLEMENT C4 22.2 MG/DL (12-36); CREATININE FOR GFR 0.84 MG/DL (0.55-1.30); GLOMERULAR FILTRATION RATE > 90.0 (>60); LDL CHOLESTEROL 107.7 MG/DL (<100); NON-HDL-C 125.5 MG/DL; POTASSIUM SERUM 4.8 MMOL/L (3.5-5.1); RHEUMATOID FACTOR QUANT < 3.5 IU/ML (<14); SODIUM LEVEL 138 MMOL/L (136-145); TRIGLYCERIDES LEVEL 89 MG/DL (<150)
[2025-06-24 13:36] LABS: FREE T4 1.48 NG/DL (0.89-1.76)
== END ==
LOC: M SFHCCLAY 07:01
PROVIDERS: ATTEND Nurse Practitioner Family
DX: I10 Essential (primary) hypertension (principal); R76.8 Other specified abnormal immunological findings in serum; R23.9 Unspecified skin changes; E66.9 Obesity, unspecified; Z13.220 Encounter for screening for lipoid disorders; Z13.1 Encounter for screening for diabetes mellitus

== ENCOUNTER → 2025-09-20 | Outpatient (CLI) | payer OTHER ==
[~2025-09-20] MED LIST changes: -LABE100T6 PO; +LABE100T91 PO; -LABE200T5 PO; +LABE200T86 PO
== END ==
LOC: M SOG 07:38
PROVIDERS: ATTEND Physician Assistant
DX: M25.511 Pain in right shoulder (principal); Z53.9 Procedure and treatment not carried out, unspecified reason